=== PATIENT | male | born 1960 | race Caucasian/White ===

== ENCOUNTER 2018-11-23 01:23 | Emergency (ER) | payer BC ==
[2018-11-23] MEDS: IBUPROFEN 800 MG TAB PO (02:48)
== END 2018-11-23 04:39 | disposition home or self-care (01) ==
LOC: FTE 01:23
DX: S40.011A Contusion of right shoulder, initial encounter (principal); W01.0XXA Fall on same level from slipping, tripping and stumbling without subsequent striking against object, initial encounter; Z79.82 Long term (current) use of aspirin
CPT/HCPCS: 73030; 73030-RT; 99283-25